=== PATIENT | female | born 1955 | race Hispanic/Latino ===

== ENCOUNTER 2024-03-06 05:03 | Day surgery (SDC) | payer MEDICARE ==
[2024-03-03 12:43] LABS: BASOPHILS # (AUTO) 0.01 K/uL (0.00-0.20); BASOPHILS % (AUTO) 0.3 % (0.0-5.0); EOSINOPHILS # (AUTO) 0.02 K/uL (0.00-0.70); EOSINOPHILS % (AUTO) 0.5 % (0.0-8.0); HEMATOCRIT 32.9 % (36-48); IMMATURE GRANULOCYTE ABSOLUTE 0.02 K/uL (0-1); LYMPHOCYTES # (AUTO) 0.9 K/uL (1.0-4.8); LYMPHOCYTES % (AUTO) 22.2 % (21.0-51.0); MEAN CORPUSCULAR HEMOGLOBIN 31.9 pg (27.0-33.0); MEAN CORPUSCULAR HGB CONC 33.7 g/dL (32.0-36.0); MEAN CORPUSCULAR VOLUME 94.5 fL (79-99); MONOCYTES # (AUTO) 0.4 K/uL (0.1-1.0); MONOCYTES % (AUTO) 11.1 % (3.0-13.0); NEUTROPHILS # (AUTO) 2.6 K/uL (1.8-7.7); NEUTROPHILS % (AUTO) 65.4 % (40.0-77.0); PLATELET COUNT (AUTO) 171 K/uL (130-400); RED BLOOD CELL COUNT(AUTO) 3.48 MIL/uL (4.00-5.50); RED CELL DISTRIBUTION WIDTH 13.6 % (11.0-15.5)
[2024-03-03 12:56] LABS: ALBUMIN 3.4 g/dL (3.5-5.0); BILIRUBIN,TOTAL 0.3 mg/dL (0.2-1.0); POTASSIUM 3.8 mmol/L (3.5-5.1); TOTAL PROTEIN, SERUM 7.2 g/dL (6.0-8.3)
[2024-03-03 13:11] LABS: INR <= 0.93 (0.85-1.15); PROTHROMBIN TIME 10.2 SEC (9.6-11.6)
[2024-03-03 13:13] LABS: PARTIAL THROMBOPLASTIN TIME 29.1 SEC (26.3-35.5)
[2024-03-03 13:27] VITALS: BP 137/70; PULSE 67; RESP 18
[~2024-03-06] VITALS: Ht 157.5 cm; Wt 79.4 kg
[2024-03-06] VITALS (22 sets, daily range): BP systolic 119–151; BP diastolic 55–70; PULSE 55–71; RESP 14–18
[~2024-03-06 05:03] MED LIST: LEVO100C4 PO; OMEP20CA12 PO; TRAM50TA4 PO
[2024-03-06] MEDS: CEFAZOLIN SODIUM 2 GM VIAL ONE (05:29)
[2024-03-06] MEDS ORDERED: MIDAZOLAM HCL 1 MG/ML 2ML VIAL ONE (06:51)
[2024-03-06] MEDS ORDERED: PROPOFOL 10 MG/ML 20ML VIAL IV ONE (06:51)
[2024-03-06] MEDS ORDERED: FENTANYL CITRATE PF 50 MCG/1 ML 2ML VIAL ONE (06:52)
[2024-03-06] MEDS ORDERED: ONDANSETRON 4MG INJ ONE (06:53)
[2024-03-06] MEDS ORDERED: 0.9%NACL 48.45 ML, ROPIVACAINE 0.5% 49.25ML, EPINEPH 0.5MG KETOROLAC 30MG,CLONIDINE 80MCG IV PRN (07:00)
[2024-03-06] MEDS ORDERED: PHENYLEPHRINE HCL 10 MG/ML 1ML VIAL IV ONE ×2 (07:11→07:12)
[2024-03-06] MEDS ORDERED: ROSU10TA28 PO (07:16)
[2024-03-06] MEDS: 0.9%NACL 1000ML 1,000 ML IV ONE (07:44)
[2024-03-06] MEDS: CLINDAMYCIN IVPB 900MG/50ML 50 ML IV ONE (07:44)
[2024-03-06] MEDS: VANCOMYCIN 1G/250ML KIT 0 ML IV ONE (07:44)
== END 2024-03-06 10:20 | disposition home or self-care (01) ==
LOC: DAH 05:03
PROVIDERS: ATTEND Orthopaedic Surgery
DX: M25.661 Stiffness of right knee, not elsewhere classified (principal); K21.9 Gastro-esophageal reflux disease without esophagitis; M81.0 Age-related osteoporosis without current pathological fracture; M19.90 Unspecified osteoarthritis, unspecified site; Z79.899 Other long term (current) drug therapy; Z98.890 Other specified postprocedural states; Z79.01 Long term (current) use of anticoagulants; Z88.0 Allergy status to penicillin
CPT/HCPCS: 80053; 85025; 85610; 85730; 36415; 93005; 87641; 27570; 97161; 97012; 97116; 97530 ×2; A6260; A4663; J7030; J2250; J2704; J2405; J2371; J3490; A5120; A4215; A4223; A4222; A4221; J3010; J3370; G8980-CI; G8983-CI; J0690